=== PATIENT | female | born 1990 | race Hispanic/Latino ===

== ENCOUNTER 2018-01-22 23:50 | Emergency (ER) | payer SELFPAY ==
[~2018-01-22] VITALS: Ht 167.6 cm; Wt 96.2 kg
[2018-01-22] MEDS ORDERED: HYDROCODONE/APAP 7.5MG-325MG 1 EA TAB PO STA (23:55)
[2018-01-23] MEDS ORDERED: ONDANSETRON HCL 4 MG ORAL DISINTEGRATING TAB PO ONE
[2018-01-23] MEDS ORDERED: TETANUS/DIPHTHERIA TOX ADULT 0.5 ML SYR IM ONE
[2018-01-23] MEDS ORDERED: NEOMYCIN/POLYMYX/BACITR OINT 0.9 GM PKT TOP ONE (01:00)
--- NOTE | 2018-01-23 01:34 | Diagnostic Imaging Report ---
FOOT RIGHT COMPLETE, LOWER LEG RIGHT, ANKLE 3 + VIEWS RIGHT Comparison: None Clinical history: Fall,, rolled ankle, pain Findings: Right lower leg, ankle, and foot: No fracture or dislocation. Ankle mortise is intact. Impression: No acute bony abnormality Signed by: Dr Rocío Shannon MD on 01/23/2018 1:10 AM
[2018-01-23 02:05] VITALS: BP 137/83
[2018-01-23] MEDS ORDERED: BACTROBAN15 G1 TOP (02:05)
== END 2018-01-23 02:16 | disposition home or self-care (01) ==
LOC: ER 23:50
DX: S80.811A Abrasion, right lower leg, initial encounter (principal); S93.491A Sprain of other ligament of right ankle, initial encounter; W01.0XXA Fall on same level from slipping, tripping and stumbling without subsequent striking against object, initial encounter; Y93.01 Activity, walking, marching and hiking; Y92.89 Other specified places as the place of occurrence of the external cause
CPT/HCPCS: 90471; 90714; 99284